=== PATIENT | male | born 1935 | race Caucasian/White ===

== ENCOUNTER → 2017-03-30 | Outpatient (CLI) | payer MEDICARE ==
--- NOTE | 2017-03-31 11:33 | ECHOF ---
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 This was a technically good study. The left ventricular size is normal. Left ventricular wall thickness is normal. Overall left vent ricular systolic function is low-normal with, an EF between 50 - 55 %. Apical septum LV wall motion is hypokinetic. The right ventricle is normal in size and function. LA is severely dilated >40 ml/m2 The right atrium is normal in size. Aortic valve is trileaflet and is mildly thickened. The mitral valve leaflets are moderately thickened. Bkubabsa-in-dgfbio mitral regurgitation is pres ent. Mild thickening of the anterior mitral valve leaflet. There is mild thickening of the porter sample case ior mitral valve leaflet. Mild prolapse of the anterior mitral valve leaflet. Mild prolapse of th e posterior mitral valve leaflet. Mild tricuspid regurgitation present. Right ventricular systolic pressure is normal at < 35 mmHg. The pulmonic valve was not well visualized. The aortic root is dilated measuring 3.9cm. Normal inferior vena cava with normal inspiratory collapse consistent with estimated right atrial pre ssure of 5 mmHg. There is no pericardial effusion. CONCLUSIONS -------- 1. Resting bradycardia (HR<60bpm). 2. This was a technically good study. 3. The left ventricular size is normal. 4. Left ventricular wall thickness is normal. 5. Overall left ventricular systolic function is low-normal with, an EF between 50 - 55 %. 6. Apical septum LV wall motion is hypokinetic. 7. The right ventricle is normal in size and function. 8. LA is severely dilated >40 ml/m2 9. The right atrium is normal in size. 10. Aortic valve is trileaflet and is mildly thickened. 11. The mitral valve leaflets are moderately thickened. 12. Lqipcowa-kc-iyhxua mitral regurgitation is present. 13. Mild thickening of the anterior mitral valve leaflet. 14. There is mild thickening of the posterior mitral valve leaflet. 15. Mild prolapse of the anterior mitral valve leaflet. 16. Mild prolapse of the posterior mitral valve leaflet. 17. Mild tricuspid regurgitation present. 18. Right ventricular systolic pressure is normal at < 35 mmHg. 19. The pulmonic valve was not well visualized. 20. The aortic root is dilated measuring 3.9cm. 21. Normal inferior vena cava with normal inspiratory collapse consistent with estimated right atrial pressure of 5 mmHg. 22. There is no pericardial effusion. STUCCO MASON: Teri Silverio RDCS
== END | disposition home or self-care (01) ==
LOC: RADECHMAIN 13:03
PROVIDERS: ATTEND Internal Medicine
DX: I08.3 Combined rheumatic disorders of mitral, aortic and tricuspid valves (principal); I25.10 Atherosclerotic heart disease of native coronary artery without angina pectoris
CPT/HCPCS: 93306

== ENCOUNTER → 2018-08-26 | Outpatient (CLI) | payer MEDICARE ==
--- NOTE | 2018-08-26 15:40 | XR ---
Chest x-ray left RIBS HISTORY: Lower lateral left rib pain frontal view of the chest and 2 views of the left ribs correlated prior chest x-ray 11/24/2011 Patient is post median sternotomy. Cardiac mediastinal silhouette, pulmonary vascularity and esme are not significantly biapical pleural thickening is again noted. There are interstitial changes within the lungs. No evident airspace disease, pneumothorax, or pleural effusion. Bone mineralization is red uced which may limit sensitivity. No evident displaced rib fracture. IMPRESSION: Postop changes. Bone scan could be performed for increased sensitivity to assess for occu lt fracture as indicated.
== END ==
LOC: RADXRMAIN 13:38
PROVIDERS: ATTEND Family Medicine
DX: R07.89 Other chest pain (principal); R63.4 Abnormal weight loss; Z98.890 Other specified postprocedural states

== ENCOUNTER 2021-07-10 18:55 | Emergency (ER) | payer MEDICARE ==
[2021-07-10 19:45] VITALS: TEMP 98.2
[2021-07-10] MEDS ORDERED: SOTROVIMAB (EUA) 500 MG in SODIUM CHLORIDE 0.9% 100 ML IVPB ONE (22:00)
[2021-07-10] MEDS ORDERED: SODIUM CHLORIDE 0.9% 50 ML IVPB ONE (22:00)
--- NOTE | 2021-07-10 22:13 | ED ---
URI HPI - General Chief Complaint: Recheck/Abnormal Lab/Rx Stated Complaint: covid+, wants infusion Time Seen by Provider: 07/10/21 21:13 Source: patient, family Mode of arrival: ambulatory Limitations: no limitations - History of Present Illness Complaint: cough Onset/Timin -: days(s) Consistency: constant Improves With: nothing Worsens With: nothing Associated Symptoms: cough Treatments Prior to Arrival: none - Related Data Allergies Allergy/AdvReac Type Severity Reaction Status Date / Time No Known Allergies Allergy Verified 07/10/21 19:45 Review of Systems ROS Statement: Those systems with pertinent positive or pertinent negative responses have been documented in the HPI. ROS Other: All systems not noted in ROS Statement are negative. Constitutional: Denies: fever, chills ENT: Denies: throat pain, congestion Respiratory: Reports: cough. Denies: dyspnea, hemoptysis Cardiovascular: Denies: chest pain Gastrointestinal: Denies: abdominal pain, vomiting, diarrhea Genitourinary: Denies: dysuria, hematuria Musculoskeletal: Denies: back pain Skin: Denies: rash Neurological: Denies: headache Past Medical History Past Medical History: No Reported History History of Any Multi-Drug Resistant Organisms: None Reported Past Surgical History: Coronary Bypass/CABG Past Psychological History: No Psychological Hx Reported Smoking Status: Never smoker Past Alcohol Use History: None Reported Past Drug Use History: None Reported General Exam Limitations: no limitations General appearance: alert, in no apparent distress Head exam: Present: atraumatic, normocephalic Eye exam: Present: normal appearance. Absent: scleral icterus, conjunctival injection ENT exam: Present: normal oropharynx Neck exam: Present: normal inspection Respiratory exam: Present: normal lung sounds bilaterally. Absent: respiratory distress, wheezes, rales, rhonchi, stridor Cardiovascular Exam: Present: regular rate, normal rhythm, normal heart sounds. Absent: systolic murmur, diastolic murmur, rubs, gallop GI/Abdominal exam: Present: soft. Absent: distended, tenderness, guarding, rebound, rigid, mass Extremities exam: Present: normal inspection, normal capillary refill. Absent: pedal edema, calf tenderness Back exam: Present: normal inspection. Absent: CVA tenderness (R), CVA tenderness (L) Neurological exam: Present: alert Skin exam: Present: warm, dry, intact, normal color. Absent: rash Course Vital Signs 07/10/21 19:38 Temperature 98.2 F Pulse Rate 65 Respiratory 18 Rate O2 Sat by Pulse 97 Oximetry Disposition Clinical Impression: COVID-19 Disposition: HOME SELF-CARE Condition: Good Instructions (If sedation given, give patient instructions): Coronavirus Disease 2019 (COVID-19) Is patient prescribed a controlled substance at d/c from ED?: No Referrals: Mike Lai MD [Primary Care Provider] - 1-2 days
[2021-07-10 23:46] VITALS: BP 133/67; PULSE 70; RESP 16
== END 2021-07-10 23:59 | disposition home or self-care (01) ==
LOC: EC 18:55
DX: U07.1 COVID-19 (principal)
CPT/HCPCS: 99283; Q0247

== ENCOUNTER → 2023-07-02 | Outpatient (CLI) | payer MEDICARE ==
--- NOTE | 2023-07-02 13:23 | XR ---
EXAMINATION TYPE: XR chest 2V DATE OF EXAM: 07/02/2023 11:47 AM CLINICAL INDICATION:Male, 88 years old with history of R04.2 Hemoptysis; [facility] COMPARISON: Chest radiographs from 08/26/2018 TECHNIQUE: XR chest 2V Frontal and lateral views of the chest. FINDINGS: Lungs/Pleura: There is flattening of the diaphragm with increased lucency of the lungs. No evidence o f pneumothorax, pleural effusion or focal consolidation. Pulmonary vascularity: Unremarkable. Heart/mediastinum: Cardiomediastinal silhouette is unremarkable. Musculoskeletal: No acute osseous pathology. Midline sternotomy wires are noted. IMPRESSION: 1. No acute cardiopulmonary disease process. 2. COPD changes.
== END | disposition home or self-care (01) ==
LOC: RADXRMAIN 11:21
PROVIDERS: ATTEND Internal Medicine Geriatric Medicine
DX: J44.9 Chronic obstructive pulmonary disease, unspecified (principal); R04.2 Hemoptysis
CPT/HCPCS: 71046

== ENCOUNTER → 2023-09-28 | Outpatient (CLI) | payer MEDICARE ==
[2023-09-28 12:59] LABS: African American GFR (CKD) >90 (>60 ml/min/1.73 sqM); Blood Urea Nitrogen 18 mg/dL (9-20); Non-African American GFR(CKD) 80 (>60 ml/min/1.73 sqM)
--- NOTE | 2023-09-28 14:21 | CT ---
EXAMINATION TYPE: CT abdomen pelvis w con DATE OF EXAM: 09/28/2023 COMPARISON: None HISTORY: Diverticulosis of large intestine without abscess w bleeding, pt also noted issues with inco ntinence. CT DLP: 462.30 mGycm CONTRAST: CT scan of the abdomen and pelvis is performed with Oral Contrast and with IV Contrast, patient injec harini with 100 mL of Isovue 300. FINDINGS: LUNG BASES-: No visible nodule. No infiltrate. LIVER/GB: No calcified gallstones. No space occupying hepatic lesion. Biliary tree is of normal ca liber. PANCREAS: No inflammation. No distinct mass. SPLEEN: No splenic enlargement. No lesion seen. ADRENALS: No nodule. No thickening. KIDNEYS/BLADDER: No hydronephrosis. No nephrolithiasis. No distinct renal mass. Urinary bladder g rossly unremarkable. BOWEL: Normal appendix. Normal bowel caliber. No inflammation. Moderate diverticulosis throughout t he colon without diverticulitis. Moderate fecal stasis. GENITAL ORGANS: No gross abnormality. LYMPH NODES: No greater than 1cm abdominal or pelvic lymph nodes are appreciated. AORTA: No significant abnormality. OSSEOUS STRUCTURES: No significant abnormality is seen. OTHER: No significant additional abnormality is seen. IMPRESSION: 1. Moderate diverticulosis throughout the colon without diverticulitis. Moderate fecal stasis.
== END | disposition home or self-care (01) ==
LOC: RADCTMAIN 12:17
PROVIDERS: ATTEND Internal Medicine Geriatric Medicine
DX: K57.30 Diverticulosis of large intestine without perforation or abscess without bleeding (principal); R15.9 Full incontinence of feces; R19.5 Other fecal abnormalities
CPT/HCPCS: 82565; 84520; 74177; 36415; Q9967

== ENCOUNTER → 2024-09-14 | Outpatient (CLI) | payer MEDICARE ==
[2024-09-14 19:50] LABS: HCT 41.8 % (39.6-50.0); HGB 13.3 g/dL (13.0-17.0); MCHC 31.8 g/dL (32.0-37.0); MCV 91.1 FL (80.0-97.0); Mean Platelet Volume 9.7 FL (9.5-12.2); NRBC Per 100 WBC 0 X 10*3/uL (0.00-0.01); Platelet Count 208 X 10*3/uL (140-440); RBC 4.59 X 10*6/uL (4.40-5.60); RDW 13.4 % (11.5-14.5); WBC 8.51 X 10*3/uL (4.50-10.00)
[2024-09-14 19:53] LABS: BUN/Creat Ratio 30.43 Ratio (12.00-20.00); Blood Urea Nitrogen 21.3 mg/dL (9.0-27.0); Calcium 9.2 mg/dL (8.7-10.3); Carbon Dioxide 23.8 mmol/L (21.6-31.8); Chloride 103 mmol/L (96-109); Glucose 107 mg/dL (70-110); Potassium 4.5 mmol/L (3.5-5.5); Sodium 140 mmol/L (135-145)
== END | disposition home or self-care (01) ==
LOC: LABWHC1 15:22
PROVIDERS: ATTEND Internal Medicine Cardiovascular Disease
DX: I49.3 Ventricular premature depolarization (principal)
CPT/HCPCS: 36415; 80048; 84443; 85027

== ENCOUNTER 2024-09-21 10:07 | Day surgery (SDC) | payer MEDICARE ==
[2024-09-19 15:27] VITALS: BMI 20.5
[2024-09-21] MEDS: SODIUM CHLORIDE 0.9% 1,000 ML IV SCH (10:36)
[2024-09-21] MEDS: IV FLUID CONTINUATION 1,000 ML IV ONE (10:44)
[2024-09-21] MEDS: IOPAMIDOL-370 100ML BTL IVP ONE (12:07)
[2024-09-21] MEDS: ceFAZolin 2 GM in DEXTROSE 5% IN WATER 50 ML IVPB PRN (12:11)
[2024-09-21] MEDS: ceFAZolin 1 GM in SODIUM CHLORIDE 0.9% IRRIG BTL 250 ML IRRIGATION PRN (12:11)
[2024-09-21] MEDS: fentaNYL (PF) 50 MCG/ML 2 ML AMP IVP ONE (12:11)
[2024-09-21] MEDS: MIDAZOLAM 2 MG/2 ML VIAL IVP ONE (12:11)
[2024-09-21] MEDS: LIDOCAINE 1% INJ 10MG/ML (20 ML MDV) SQ ONE ×2 (12:15)
--- NOTE | 2024-09-21 14:20 | P.PCN ---
Description of Procedure: CARDIOLOGY PROCEDURE NOTE Supervisor Aircraft Cleaning: Dr. Norberto Avendano Procedure performed: Insertion dual chamber permanent pacemaker Site: Left subclavian Indications: Sick Sinus Syndrome, symptomatic bradycardia with dizziness with heart rates in the 30s with need for beta-luis secondary to CAD Complications: None Blood Loss: Minimal Description of Procedure: After the risks, benefits, and alternatives of the above-mentioned procedure was explained in detail with the patient, informed consent was obtained. The patient was taken to the cardiac catheterization suite where the left subclavian area was sterily prepped and draped in the usual fashion. One percent lidocaine was used to anesthetize the left subclavian area. Twenty milliliters of Isoview 370 contrast was injected into the left antecubital vein to allow for direct visualization of the left subclavian vein under fluoroscopy. A 1.5 inch incision was made utilizing a #15 blade in the left subclavian site. Hemostasis was made complete. Electrocautery along with digital blunt dissection was utilized to dissect to the level of the pectoralis muscle fascia and create a pocket large enough to accommodate the generator. A thin walled micro puncuture needle was used to cannulate the left subclavian vein. A guide-wire was inserted through the needle into the vascular lumen under fluoroscopic guidance. The needle was removed. Another thin walled micr puncture needle was used to again cannulate the left subclavian vein. A guide-wire was inserted through the needle into the vascular lumen under fluoroscopic guidance. The needle was removed and both guide-wires were attached to the field. A venous sheath and dilator were advanced over the guidewire into the vascular lumen under fluoroscopic guidance. The dilator and guidewire were then removed. A right ventricular bipolar lead was inserted into the sheath and advanced under fluoroscopic guidance into the right ventricle under fluoroscopic guidance. Adequate sensing and pacing thresholds were achieved and the lead was screwed into place in the RV apex. The sheath was then torn away. The lead collar was advanced and anchored into place utilizing #0 silk suture. Next, another venous sheath and dilator were advanced under fluoroscopic guidance into the vascular lumen over the guidewire. After removal of the dilator and guidewire, a right atrial bipolar lead was inserted into this sheath and advanced under fluoroscopic guidance into the right atrium. The lead was positioned into the right atrial appendage. Adequate sensing and pacing thresholds were then achieved with patient being in Aflutter at the time and the lead was screwed into place. The sheath was then torn away. The lead collar was advanced and anchored into place utilizing #0 silk suture. The leads were then inserted into the appropriate position into the generator. They were then secured with the setscrew provided. The leads and generator were inserted into the pocket with the leads posterior. The subcutaneous tissue was approximated utilizing #2.0 and 3.0 vicryl in an interrupted stitch fashion. The dermal layer was approximated utilizing #4.0 vicryl. The area was cleansed with sterile saline and dried. A sterile 4x4 dressing was applied and the patient was transferred to the post catheterization holding area in stable and satisfactory condition. The patient tolerated the procedure well. Generator Data Refrigeration Service Technician: [employer] Brand: [id number] Farina XT DR MRI Model #: [id number] Serial#: [id number] Right Atrial Bipolar Lead Data: Type: Active fixation lead Refrigeration Service Technician: [employer] Model#: 5076-45 Serial Number: [id number] Right Ventricular Bipolar Lead Data: Type: Active fixation lead Refrigeration Service Technician: [employer] Model #: 5076-52 Serial #: [id number] Stimulation Thresholds: Right atrial bipolar lead pacing and sensing thresholds Voltage: 0.5 V Impedance: 475 ohms P-wave sensin.0 mV Right Ventricular bipolar lead pacing and sensing thresholds Pulse Width: 0.4ms Voltage: 0.625 volts Impedance: 646 ohms R-wave sensin.8 mV Parameter Setting: Pacing mode is AAIR<=>DDDR Lower rate 60 bpm Upper rate 130 bpm Impressions: 1. Successful implantation of a dual chamber permanent pacemaker in the left pectoral site. Plan: 1. Routine post procedure care will be instituted as well as outpatient follow- up surveillance.
--- NOTE | 2024-09-21 15:30 | XR ---
EXAMINATION TYPE: XR chest 1V portable DATE OF EXAM: 09/21/2024 CLINICAL INDICATION: Male, 89 years old with history of Lead placement check, TECHNIQUE: Single frontal view of the chest is obtained. COMPARISON: Chest x-ray July 04, 2023 FINDINGS: Overlying Sternal wires and mediastinal clips are redemonstrated. Persistent cardiomegaly with new dual lead pacemaker. Leads project over the level of the right atrium and right ventricle. T here is chronic parenchymal change in the upper lungs without suspicious focal air space opacity, pleural effusion, or pneumothorax seen bilaterally. The osseous structures are intact. IMPRESSION: As above. [facility], , 09/21/2024 3:27 PM
[2024-09-21 16:44] LABS: African American GFR (CKD) >90 (>60 ml/min/1.73 sqM); Anion Gap 10 mmol/L; Blood Urea Nitrogen 15 mg/dL (9-20); Calcium 9.1 mg/dL (8.4-10.2); Carbon Dioxide 24 mmol/L (22-30); Chloride 105 mmol/L (98-107); Glucose 111 mg/dL (74-99); Non-African American GFR(CKD) 84 (>60 ml/min/1.73 sqM); Sodium 139 mmol/L (137-145)
[2024-09-21] MEDS: ceFAZolin 2 GM in DEXTROSE 5% IN WATER 50 ML IVPB SCH (17:23)
[2024-09-22] MEDS: ACETAMINOPHEN TAB 325 MG TAB PO PRN (00:39)
[2024-09-22 02:46] VITALS: PULSE 65
--- NOTE | 2024-09-22 08:02 | P.DS ---
Providers Attending physician: Norberto Avendano DO Primary care physician: [facility] Course: Patient was found to have significant bradycardia with heart rate in the 30s with dizziness with need for beta-luis secondary to CAD. Therefore he underwent elective dual-chamber permanent pacemaker 09/21/2024 from the left subclavian site without any complications. Patient was monitored overnight without any issues and pacemaker interrogation shows stable numbers. Patient will be discharged home with outpatient follow-up in 1 week. Plan - Discharge Summary Discharge Rx Participant: No New Discharge Prescriptions: No Action Metoprolol Succinate [Metoprolol Succinate ER] 50 mg PO DAILY Rosuvastatin [Crestor] 10 mg PO DAILY Aspirin [Adult Low Dose Aspirin EC] 81 mg PO DAILY Discharge Medication List Aspirin [Adult Low Dose Aspirin EC] 81 mg PO DAILY 09/19/24 [History] Metoprolol Succinate [Metoprolol Succinate ER] 50 mg PO DAILY 09/19/24 [History] Rosuvastatin [Crestor] 10 mg PO DAILY 09/19/24 [History] Follow up Appointment(s)/Referral(s): Norberto Avendano DO [STAFF PHYSICIAN] - 09/29/24 10:00 am (FOLLOW UP APPOINTMENT WITH [facility] IS MADE. )
[2024-09-22 08:33] VITALS: BP 133/69; RESP 16; TEMP 97.6
[2024-09-22] MEDS: ASPIRIN 81 MG PO SCH (09:01)
[2024-09-22] MEDS: ATORVASTATIN 20 MG TAB PO SCH (09:01)
[2024-09-22] MEDS: METOPROLOL SUCCINATE (ER) 50 MG TAB.ER.24H PO SCH (09:01)
== END 2024-09-22 09:53 | disposition home or self-care (01) ==
LOC: CATHEP 10:07 → 6NMEDSUR 13:25 → CATHEP 09-22 09:53
PROVIDERS: ATTEND Internal Medicine
DX: I25.10 Atherosclerotic heart disease of native coronary artery without angina pectoris (principal); I34.0 Nonrheumatic mitral (valve) insufficiency; I49.3 Ventricular premature depolarization; I49.5 Sick sinus syndrome; I25.810 Atherosclerosis of coronary artery bypass graft(s) without angina pectoris; E78.2 Mixed hyperlipidemia; Z79.82 Long term (current) use of aspirin; Z79.899 Other long term (current) drug therapy
CPT/HCPCS: 33208; 80048; 71045; C1892; C1898; C1769; C1785; J2250; J0690; J2003; J3010; Q9967